=== PATIENT | female | born 1970 | race Caucasian/White ===

== ENCOUNTER 2017-03-12 07:59 | Emergency (ER) | payer SELFPAY ==
[2015-04-15 08:09] VITALS: BMI 38.8
[~2017-03-12 07:59] MED LIST: CYMBALTA60 MG PO; HYDROCODONE-APA1 TAB PO
== END 2017-03-12 09:10 | disposition home or self-care (01) ==
LOC: D.ER 07:59
DX: J02.9 Acute pharyngitis, unspecified (principal); J06.9 Acute upper respiratory infection, unspecified

== ENCOUNTER 2020-01-20 15:04 | Outpatient (CLI) | payer BC ==
[2015-04-15 08:09] VITALS: BMI 38.8
== END 2020-01-23 23:59 | disposition home or self-care (01) ==
LOC: D.MAMMO 15:04
PROVIDERS: ATTEND Family Medicine
DX: N63.22 Unspecified lump in the left breast, upper inner quadrant (principal)

== ENCOUNTER → 2020-02-03 10:12 | Outpatient (CLI) | payer BC ==
[2015-04-15 08:09] VITALS: BMI 38.8
== END | disposition home or self-care (01) ==
LOC: D.US 10:12
PROVIDERS: ATTEND Family Medicine
DX: R92.8 Other abnormal and inconclusive findings on diagnostic imaging of breast (principal)